=== PATIENT | male | born 1990 | race Caucasian/White ===

== ENCOUNTER 2017-02-01 20:40 | Emergency (ER) | payer SELFPAY ==
[~2017-02-01] VITALS: Ht 175.3 cm; Wt 65.8 kg
== END 2017-02-01 22:10 | disposition left against medical advice (07) ==
LOC: ER 20:40
DX: Z53.29 Procedure and treatment not carried out because of patient's decision for other reasons (principal)

== ENCOUNTER 2017-03-12 23:40 | Emergency (ER) | payer SELFPAY ==
[~2017-03-12] VITALS: Ht 182.9 cm; Wt 74.8 kg
--- NOTE | 2017-03-13 00:01 | Emergency Room Report ---
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 CUSSING AT OFFICERS. SMELL OF ETOH Onset of symptoms date/time:03/12/17/ or onset unknown for:MEDICAL HX UNKNOWN Treatment Prior to Arrival: [facility] Provided by: Sepsis Risk Assessment: Temp: 98.7 B/P: 154/78 MAP: 103 Pulse: 94 Resp: 18 Recent fever? N Clinical Suspician of Infection? N Mental Status: 1 - Regular (Normal Baseline) Sepsis Risk:Low Sepsis Risk Have you (or family members/close friends) recently traveled outside the [place]? N If Yes, where/when: Have you had exposure to infectious disease within the past month? N TB? Other? Specify: Source patient, RN notes reviewed, old records Exam Limitations intoxication Comment pt without specific c/o - has been drinking etoh but denied any other use of drugs or otc meds Cardiac Chest Pain Chest pain indicative of cardiac No Timing/Duration this evening Severity moderate ALLERGIES Coded Allergies: acetaminophen (From TYLENOL) (02/02/17) ibuprofen (02/02/17) Home Medications Reported Medications No Known Home Medications History Medical History General CAD? Yes Angina: Yes [place]: Yes Hypertension? Yes Hyperlipidemia? No CHF? Yes DVT? Yes PE? Yes COPD? No Asthma? Yes Anemia? Yes GERD? No Gastric ulcers? No GI Bleed? No Hernia? Yes Thyroid Problems? No Hypothyroidism? No CVA? No Seizures? Yes Diabetes? Yes Insulin Dependent: Yes Insulin Pump: No Home FSBS? No Renal Insuffiency? No End Stage Renal Disease? No UTI? No Stones? Yes BPH? No GB Disease: No Nephritic Syndrome? No Asplenia? No Hepatitis? No Sickle Cell Disease? No Arthritis? No Migraines? No Cataracts? No Glaucoma? No MRSA? No HIV? No TB? No Anxiety? No Depression? No Cancer? No More? No Immunization Hx DT/Tetanus Unknown Surgical Hx Previous Surgery?Y REFUSED TO ANSWER Social History Smoking Hx Smoker: Current Every Day Smoker Tobacco: Yes Type Cigarettes Packs/day < 1 Pack Alcohol Alcohol: Yes Drugs none Review of Systems All Other Systems Reviewed and Negative Constitutional denies fever Eyes denies drainage ENT denies: ear discharge, epistaxis, throat pain. Respiratory denies cough, denies shortness of breath, denies wheezing Cardiovascular denies chest pain, denies syncope Gastrointestinal denies abdominal pain, denies diarrhea, denies vomiting Genitourinary denies: dysuria, frequency, hesitancy, hematuria. Musculoskeletal denies back pain, denies joint pain, denies joint swelling, denies neck pain Skin denies rash Psychiatric/Neurological denies headache, denies seizure Physical Exam Vital Signs Vital Signs Date Time Temp Pulse Resp B/P Pulse O2 O2 Flow FiO2 Ox Delivery Rate 03/12 2346 98.7 94 18 154/78 92 - WBC >12,000 or <4,000 or 10% bands? 2 or more SIRS Criteria Met? B/P:154/78 MAP:103 Creatinine >2.0? UA output<0.5ml/kg/hr for 2 hrs? Platelet count >100,000? Lactate >2.0mmol/1? INR >1.2 or PTT > than 60 sec? Evidence of Organ Dysfunction? Provider documented clinical suspician of infection? N Sepsis Criteria Count: 1 Sepsis Risk: Low Sepsis Risk General Appearance no apparent distress Eye Exam - bilateral eye PERRL, bilateral eye EOMI Ear, Nose, Throat normal ENT inspection Neck supple Respiratory Status No: respiratory distress. Lung Sounds bilateral: lungs clear. 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 No Departure Departure Time of Disposition 2355 Disposition DC Home or Self Care(routine) Clinical Impression Primary Impression: Alcohol use Secondary Impressions: Medical clearance for incarceration Condition STABLE Patient Instructions DI for Alcohol Abuse Additional Instructions see pcp for follow up Discharge Counseling Counseled pt/family regarding diagnosis Prescriptions Current Visit Scripts No Known Home Medications ED Critical Care Critical Care No at 0001
--- NOTE | 2017-03-13 00:01 | Emergency Room Report ---
History of Present Illness Time Seen by [id number] Presenting Problem in Triage Pt arrived:Walked Presenting Problem:BROUGHT INTO ER FOR CLEARANCE, PATIENT SPITTING AND KICKING TRASH CAN. CUSSING AT OFFICERS. SMELL OF ETOH Onset of symptoms date/time:03/12/17/ or onset unknown for:MEDICAL HX UNKNOWN Treatment Prior to Arrival: PHOTOGRAPH PRINTER Provided by: Sepsis Risk Assessment: Temp: 98.7 B/P: 154/78 MAP: 103 Pulse: 94 Resp: 18 Recent fever? N Clinical Suspician of Infection? N Mental Status: 1 - Regular (Normal Baseline) Sepsis Risk:Low Sepsis Risk Have you (or family members/close friends) recently traveled outside the [place]? N If Yes, where/when: Have you had exposure to infectious disease within the past month? N TB? Other? Specify: Source patient, RN notes reviewed, old records Exam Limitations intoxication Comment pt without specific c/o - has been drinking etoh but denied any other use of drugs or otc meds Cardiac Chest Pain Chest pain indicative of cardiac No Timing/Duration this evening Severity moderate ALLERGIES Coded Allergies: acetaminophen (From TYLENOL) (02/02/17) ibuprofen (02/02/17) Home Medications Reported Medications No Known Home Medications History Medical History General CAD? Yes Angina: Yes [place]: Yes Hypertension? Yes Hyperlipidemia? No CHF? Yes DVT? Yes PE? Yes COPD? No Asthma? Yes Anemia? Yes GERD? No Gastric ulcers? No GI Bleed? No Hernia? Yes Thyroid Problems? No Hypothyroidism? No CVA? No Seizures? Yes Diabetes? Yes Insulin Dependent: Yes Insulin Pump: No Home FSBS? No Renal Insuffiency? No End Stage Renal Disease? No UTI? No Stones? Yes BPH? No GB Disease: No Nephritic Syndrome? No Asplenia? No Hepatitis? No Sickle Cell Disease? No Arthritis? No Migraines? No Cataracts? No Glaucoma? No MRSA? No HIV? No TB? No Anxiety? No Depression? No Cancer? No More? No Immunization Hx DT/Tetanus Unknown Surgical Hx Previous Surgery?Y REFUSED TO ANSWER Social History Smoking Hx Smoker: Current Every Day Smoker Tobacco: Yes Type Cigarettes Packs/day < 1 Pack Alcohol Alcohol: Yes Drugs none Review of Systems All Other Systems Reviewed and Negative Constitutional denies fever Eyes denies drainage ENT denies: ear discharge, epistaxis, throat pain. Respiratory denies cough, denies shortness of breath, denies wheezing Cardiovascular denies chest pain, denies syncope Gastrointestinal denies abdominal pain, denies diarrhea, denies vomiting Genitourinary denies: dysuria, frequency, hesitancy, hematuria. Musculoskeletal denies back pain, denies joint pain, denies joint swelling, denies neck pain Skin denies rash Psychiatric/Neurological denies headache, denies seizure Physical Exam Vital Signs Vital Signs Date Time Temp Pulse Resp B/P Pulse O2 O2 Flow FiO2 Ox Delivery Rate 03/12 2346 98.7 94 18 154/78 92 - WBC >12,000 or <4,000 or 10% bands? 2 or more SIRS Criteria Met? B/P:154/78 MAP:103 Creatinine >2.0? UA output<0.5ml/kg/hr for 2 hrs? Platelet count >100,000? Lactate >2.0mmol/1? INR >1.2 or PTT > than 60 sec? Evidence of Organ Dysfunction? Provider documented clinical suspician of infection? N Sepsis Criteria Count: 1 Sepsis Risk: Low Sepsis Risk General Appearance no apparent distress Eye Exam - bilateral eye PERRL, bilateral eye EOMI Ear, Nose, Throat normal ENT inspection Neck supple Respiratory Status No: respiratory distress. Lung Sounds bilateral: lungs clear. 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 No Departure Departure Time of Disposition 2355 Disposition DC Home or Self Care(routine) Clinical Impression Primary Impression: Alcohol use Secondary Impressions: Medical clearance for incarceration Condition STABLE Patient Instructions DI for Alcohol Abuse Additional Instructions see pcp for follow up Discharge Counseling Counseled pt/family regarding diagnosis Prescriptions Current Visit Scripts No Known Home Medications ED Critical Care Critical Care No at 0001
[2017-03-13 00:05] VITALS: BP 154/78
== END 2017-03-13 00:07 | disposition home or self-care (01) ==
LOC: ER 23:40
DX: Z02.89 Encounter for other administrative examinations (principal); Z88.6 Allergy status to analgesic agent; I10 Essential (primary) hypertension; J45.909 Unspecified asthma, uncomplicated; E11.9 Type 2 diabetes mellitus without complications; Z79.4 Long term (current) use of insulin; F17.210 Nicotine dependence, cigarettes, uncomplicated